=== PATIENT | female | born 2000 | race Two or more races ===

== ENCOUNTER 2021-06-17 12:58 | Outpatient (CLI) | payer SELFPAY ==
[~2021-06-17] VITALS: Ht 157.5 cm; Wt 87.7 kg
[2021-06-17] MEDS ORDERED: ACETAMINOPHEN 325 MG TABLET PO ONE (13:30)
[2021-06-17] MEDS ORDERED: ACETAMINOPHEN 325 MG TABLET ONE (13:31)
[2021-06-17 13:45] VITALS: BP 125/78
[2021-06-17 13:48] LABS: MICROSCOPIC INDICATED
[2021-06-17] MEDS ORDERED: PLEASE ENTER ALLERGIES MC SCH (14:00)
[2021-06-17] MEDS ORDERED: PLEASE ENTER HEIGHT AND WEIGHT MC SCH (14:00)
== END 2021-06-17 14:48 | disposition home or self-care (01) ==
LOC: LDOP 12:58
PROVIDERS: ATTEND Obstetrics & Gynecology
DX: O16.3 Unspecified maternal hypertension, third trimester (principal); Z3A.32 32 weeks gestation of pregnancy
CPT/HCPCS: 59025; 81001; 87086